=== PATIENT | female | born 2000 | race African-American/Black ===

== ENCOUNTER 2022-01-03 17:45 | Emergency (ER) | payer OTHER ==
[2022-01-03 18:34] VITALS: BP 125/69; PULSE 109; TEMP 98.7; BMI 22.3
== END 2022-01-03 21:02 | disposition home or self-care (01) ==
LOC: JERFT 17:45
DX: N77.1 Vaginitis, vulvitis and vulvovaginitis in diseases classified elsewhere (principal); Z20.2 Contact with and (suspected) exposure to infections with a predominantly sexual mode of transmission
CPT/HCPCS: 99283-25